=== PATIENT | male | born 1985 | race Caucasian/White ===

== ENCOUNTER → 2023-06-18 | Outpatient (CLI) | payer BC ==
--- NOTE | 2023-06-18 14:08 | MR ---
EXAMINATION TYPE: MR elbow LT wo con DATE OF EXAM: 06/18/2023 COMPARISON: Prior not available for review HISTORY: 38-year-old male Left elbow pain, history of bicep tendon tear. Follow-up after reinjury. TECHNIQUE: Multiplanar, multisequence images of the left elbow were obtained without IV contrast. FINDINGS: There is a small joint effusion with mild chronic synovitis. Triceps insertion is intact. There is tendinopathy in both the common flexor and common extensor tendon origins. Corticated bone f ragments measuring 1.3 cm and 0.6 cm at the common extensor tendon origin suggesting old avulsion inj uries. Some heterogeneous signal is present without bang tear at this time. There appears to be some deep sided fraying at the humeral attachment of the RCL. Heterogeneous thickening of the common flexor tendon origin without discrete tear. There is also thickening and some heterogeneous signal of the UCL. Unable to exclude a true thickness tear defect of the mid substance on coronal series 801 image 20. Radiocapitellar and ulnotrochlear joints appear intact though with some marginal spurring present. There is distal biceps tendon rupture with fluid and debris within the intervening gap. Balled up cruzito mp shows variable retraction to the level of the elbow joint line by at least 6.0 cm from the radial tuberosity. Prominent fluid surrounds the myotendinous junction extending into the lower arm with flu id collection measuring up to 3.8 cm wide and 4.6 cm craniocaudal. There is prominent subcutaneous soft tissue swelling. Edema extends along the lacertus fibrosis but s ome intact fibers appear to be present here. IMPRESSION: 1. The patient's outside prior is not available for review. The current exam shows evidence of distal biceps tendon rupture. The balled up stump shows retraction of at least 6 cm to the level of the elb ow joint line. Extensive surrounding fluid and hemorrhage at the myotendinous junction with fluid marvin suring up to 4.6 cm in size. 2. Common flexor and common extensor origin tendinosis. Evidence of old avulsion injuries at the comm on extensor tendon origin. No discrete tear defect is identified. 3. Deep sided fraying at the humeral attachment of the RCL. Also, unable to exclude a small through t hickness tear within the mid substance of the UCL (coronal series 801 image 20). 4. Mild degenerative spurring throughout the elbow. Small joint effusion with mild chronic synovitis.
== END | disposition home or self-care (01) ==
LOC: RADMRIMAIN 12:35
PROVIDERS: ATTEND Orthopaedic Surgery Hand Surgery
DX: S46.212A Strain of muscle, fascia and tendon of other parts of biceps, left arm, initial encounter (principal); M25.422 Effusion, left elbow; M65.9 Synovitis and tenosynovitis, unspecified; M79.602 Pain in left arm

== ENCOUNTER 2023-06-20 12:33 | Day surgery (SDC) | payer BC ==
--- NOTE | 2023-06-19 10:41 | P.HPOR ---
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 He underwent an MRI shortly after which revealed a partial biceps tendon tear. Several weeks later he continued to compete in an different strongman competition and again injured the elbow and had bruising and swelling present in the anterior arm and has noticed weakness since the injury. He has a history of a left elbow dislocation that occurred 12 years ago but outside of some mild limited extension of the elbow he states he had full function and strength of the elbow up until this most recent injury. Physical Examination: LUE: AIN/PIN/Radial/Ulnar/Median motor intact. Radial/Ulnar/Median SILT. 2+/4 Radial/Ulnar pulses palpated. 5/5 APB, 5/5 FDI. Bruising/swelling along anteromedial forearm. There is no tension on the biceps tendon with hook testing. Elbow stable to varus/valgus stress. NTTP over common extensor/flexor origin. Imaging: X-Rays of the left elbow 3V taken in office today demonstrates moderate to severe ulnohumeral arthritis with chronic ossific fragments located near the common extensor origin laterally and common flexor origin medially. MRI of the left elbow on 06/18/23 demonstrates complete distal biceps tendon tear with 6cm of retraction. Chronic avulsion injuries at the common extensor tendon origin. Mild degenerative spurring throughout the elbow. Impression: 1.) Left distal biceps tendon rupture Plan: Diagnosis and treatment options were discussed with the patient. I recommend urgent repeat left elbow MRI due evaluate for complete tear of the biceps for surgical planning. We discussed he has findings concerning for his partial tear being now converted to a complete tear with retraction. He is tentatively scheduled for a left distal biceps tendon repair. Risks and benefits of surgery including bleeding, infection, damage to surrounding tissue, need for further surgery, residual numbness were discussed and the patient wished to go forward with surgery. The patient was agreeable with this plan. -Fredi Mendoza DO Orthopedic Hand/Upper Extremity Surgeon Past Medical History Past Medical History: Thyroid Disorder Additional Past Medical History / Comment(s): hypothyroid History of Any Multi-Drug Resistant Organisms: None Reported Additional Past Surgical History / Comment(s): vasectomy Past Anesthesia/Blood Transfusion Reactions: No Reported Reaction Additional Past Anesthesia/Blood Transfusion Reaction / Comment(s): has not had general anesthesia Smoking Status: Never smoker - Past Family History Mother History Unknown: Yes Father Family Medical History: No Reported History Medications and Allergies Home Medications Medication Instructions Recorded Confirmed Type Levothyroxine Sodium [Synthroid] 75 mcg PO DAILY 06/19/23 06/19/23 History Allergies Allergy/AdvReac Type Severity Reaction Status Date / Time No Known Allergies Allergy Verified 06/19/23 08:12 Physical Examination Osteopathic Statement: *. No significant issues noted on an osteopathic structural exam other than those noted in the History and Physical/Consult.
[~2023-06-20 12:33] MED LIST: DEXAMETHASONE SOD PHOSPHATE 4 MG/ML 1 ML VIAL IV ONE; HYDROmorphone 0.5 MG/0.5 ML SYRINGE IVP PRN; LACTATED RINGERS 1,000 ML IV SCH; LIDOCAINE 1% (10MG/ML) FOR IV START INTRADERMA PRN; MIDAZOLAM 2 MG/2 ML VIAL IV PRN
[2023-06-20] MEDS ORDERED: ONDANSETRON 4 MG/2 ML VIAL ONE (13:50)
[2023-06-20 14:01] LABS: Basophils % (A) 0 %; Eosinophils # (A) 0.2 k/uL (0-0.7); Eosinophils % (A) 3 %; HCT 48.2 % (39.0-53.0); HGB 15.9 gm/dL (13.0-17.5); Lymphocytes # (A) 2.8 k/uL (1.0-4.8); Lymphocytes % (A) 30 %; MCH 31.3 pg (25.0-35.0); MCV 94.8 fL (80.0-100.0); Mean Platelet Volume 8.9; Monocytes # (A) 0.5 k/uL (0-1.0); Monocytes % (A) 6 %; Neutrophils # (A) 5.5 k/uL (1.3-7.7); Neutrophils % (A) 59 %; Platelet Count 237 k/uL (150-450); RBC 5.09 m/uL (4.30-5.90); WBC 9.4 k/uL (3.8-10.6)
[2023-06-20] MEDS ORDERED: LIDOCAINE 1% INJ 10MG/ML (20 ML MDV) ONE (16:13)
[2023-06-20] MEDS ORDERED: HYDROmorphone (PF) 1 MG/ML ONE (16:13)
[2023-06-20] MEDS ORDERED: PROPOFOL 10 MG/ML 20 ML VIAL IV ONE (16:13)
[2023-06-20] MEDS ORDERED: fentaNYL (PF) 50 MCG/ML 2 ML AMP ONE (16:13)
[2023-06-20] MEDS ORDERED: MIDAZOLAM 2 MG/2 ML VIAL ONE (16:13)
[2023-06-20] MEDS ORDERED: SUCCINYLCHOLINE CHLORIDE 200 MG/10 ML VIAL IV ONE (16:13)
[2023-06-20] MEDS ORDERED: LABETALOL 5 MG/ML VIAL MDV ONE (16:13)
[2023-06-20] MEDS ORDERED: NALOXONE 0.4 MG/ML 1 ML VIAL ONE (16:13)
[2023-06-20] MEDS ORDERED: BUPIVACAINE (PF) 0.5% 30 ML VIAL SQ ONE ×2 (16:43→18:27)
[2023-06-20] MEDS ORDERED: LACTATED RINGERS 1,000 ML IV ONE ×2 (17:13→18:11)
--- NOTE | 2023-06-20 18:49 | P.OP ---
Date of Procedure: 06/20/23 Preoperative Diagnosis: Left distal biceps tendon tear Postoperative Diagnosis: Left distal biceps tendon tear Procedure(s) Performed: Left distal biceps tendon repair Implants: Arthrex distal biceps suture button Anesthesia: SABINAA Surgeon: Fredi Mendoza Disbursement Clerk #1: John Fox Estimated Blood Loss (ml): 20 Pathology: none sent Condition: stable Disposition: PACU Description of Procedure: This is a 38 year old male with a history of a left distal biceps tendon rupture that occurred while doing a strongman event. He presents today for left distal biceps tendon avulsion repair. Risks and benefits of surgery were discussed with the patient including bleeding, damage to surrounding tissue, infection, paresthesias, need for further surgery and the patient wished to proceed with surgical intervention. The patient was seen in the pre-operative area by myself. Consent and H&P were completed and updated. The correct extremity was marked in the pre-operative area by myself and all other questions were answered. Patient received an upper extremity nerve block by the department of anesthesia. He then was brought to the operating room by the department of anesthesia. He was transferred to the operative table and a rolling hand table was brought to the side of the operative extremity. The patient was then drifted off to sleep by the department of anesthesia. A nonsterile tourniquet was then applied to the operative extremity and the left upper extremity was then prepped and draped in normal sterile fashion. Pre-operative time out was performed indicating the correct patient, procedure and laterality. All in the room agreed. Pre-operative antibiotics were given prior to skin incision. The operative extremity was the exsanguinated with an esmarch bandage and the tourniquet was inflated to 250mmHg. 15 blade scalpel was used to make a 4cm transverse incision 3 cm distal to the anterior elbow antecubital fossa crease. Blunt dissection was then performed in subcutaneous tissues, retractors were placed taking care to not put excessive force laterally to avoid pressure on the LABCN. Seroma was identified and the distal end of the biceps tendon was identified proximally in the arm near the belly off the biceps with significant retraction and abundant adhesions that has formed to the surrounding clemencia and vascular structures which were carefully dissected, the end of the tendon was then grasped with an Funmilayo clamp. The tendon edge was very degenerative in nature and severely frayed. The rupture point was only roughly 4 cm proximal to the myotendinous junction not leaving much distal tendon. Edges were trimmed of degenerative tissue to create a more profiled distal tip. A number 2 looped fiberwire was then used to sequentially grasp the tendon starting 2.5cm proximal to the distal end. The last stitch was placed in a locking fashion. Tendon sizer was then utilized the distal tendon was able to fit through a 7mm hole. Attention was then brought back to the antecubital fossa and deeper dissection was taken down to the radial tuberosity. Tendon remnants were debrided carefully with rongeur. The forearm was then maximally supinated to reveal the bicipital tuberosity on the radius in order to move the PIN nerve as far radial as possible. A 3.2mm guide pin was then inserted bicortically into the radial tuberosity aimed 30 degrees ulnarly to avoid PIN damage. Correct placement was then confirmed on flouroscopy. A 8mm drill was then used to drill the near cortex only. The wound was then copiously irrigated. The free ends of the suture were then passed through the Arthrex cortical button to engage the tension slide mechanism. Cortical button was placed into the button office administration instructor and inserted through the drill hole and deployed. Tension was then applied to snug the cortical button flush against the dorsal cortex. The free suture limbs were then tensioned to dock the tendon in the bone tunnel, this required 90 degrees of flexion in order to get the tendon down to the tunnel, any further extension and the tendon would not reach the tunnel due to the rupture being close to the myotendinous junction. A free needle was then used to pass one limb through the tendon and multiple square knots were tied. Mini C arm was then used to confirm that the button had flipped and was lying flush against the cortex of the radius. The wound was then irrigated. Closure was performed with interrupted 4-0 monocryl suture followed by a running subcuticular suture. Exofin glue was then applied to the wound. 4x4s, webril and a posterior splint with the elbow in slight flexion was applied. The tourniquet was let down and the hand had immediate normal perfusion. The patient was then woken and transferred to PACU in stable condition. John KEY was present for the case and aided in assistance in hardware placement and protection of vital neurovascular structures. Fredi Mendoza DO Orthopedic Hand/Upper Extremity Surgeon
[2023-06-20 19:43] VITALS: TEMP 97.8
[2023-06-20 20:05] VITALS: BP 143/81
[2023-06-20 20:06] VITALS: PULSE 73; RESP 15
== END 2023-06-20 20:28 | disposition home or self-care (01) ==
LOC: OR 12:33
PROVIDERS: ATTEND Orthopaedic Surgery Hand Surgery
DX: S46.212A Strain of muscle, fascia and tendon of other parts of biceps, left arm, initial encounter (principal); E03.9 Hypothyroidism, unspecified; Z79.890 Hormone replacement therapy; Z86.69 Personal history of other diseases of the nervous system and sense organs; X58.XXXA Exposure to other specified factors, initial encounter
CPT/HCPCS: 85025; 24342; C1713; J2250; J0330; J1100; J2310; J0690; J2405; J2001; J3010; J1170; J2704; J0665; J1920